=== PATIENT | male | born 1985 | race African-American/Black ===

== ENCOUNTER 2017-09-23 21:39 | Emergency (ER) | END 2017-09-23 22:49 | disposition home or self-care (01) | LOC: ERS 21:39 | DX: R53.83 Other fatigue (principal) | CPT/HCPCS: 93005 ==

== ENCOUNTER 2018-10-13 10:29 | Emergency (ER) | payer SELFPAY | END 2018-10-13 10:48 | disposition home or self-care (01) | LOC: ERS 10:29 | DX: S00.83XA Contusion of other part of head, initial encounter (principal); S90.31XA Contusion of right foot, initial encounter; V89.2XXA Person injured in unspecified motor-vehicle accident, traffic, initial encounter | CPT/HCPCS: 99283 ==